=== PATIENT | female | born 2005 | race African-American/Black ===

== ENCOUNTER 2025-02-10 11:45 | Emergency (ER) | payer MEDICAID, OTHER ==
[~2025-02-10] VITALS: Ht 172.7 cm; Wt 61.0 kg
--- NOTE | 2025-02-10 12:04 | ED.PDOC ---
Eye-HPI HPI Comments 19 y.o female presents to the ED for a chief complain of right ear pain as sociated with bilateral eye discharge and redness. Patient reports tenderness when sleeping on right ear and has irritation to both eyes in which her son had a couple days ago. Patient reports decreasing hearing sound to the right ear but no total hearing loss, blurred vision, eye pain or trauma or concern for eye FB. States she feels like she has a fever and chills as well. Allergic to ibuprofen. Patient was recently on vacation on a cruise and returned on 02/03/25. No other complaints reported. Chief Complaint: Eye Problem Time Seen by MD: 11:58 Reviewed Notes: Nurses Notes, Medications, Allergies Allergies: Coded Allergies: Ibuprofen (Verified Allergy, Unknown, 02/10/25) Home Meds Active Scripts Amoxicillin & Pot Clavulanate (AUGMENTIN TABLET) 875 Mg Tb, 875 MG PO BID for 10 Days, #20 TAB Prov:TINA MATSON MD 02/10/25 Information Source: Patient Mode of Arrival: Ambulatory Timing: Days Duration: Since onset Quality: Pain Eye Location: Bilateral ENT Ear Exam: Tender Associated signs and symptoms: Ear Pain Past Medical History PAST MEDICAL HISTORY: Denies Surgical History: Denies all surgeries [employer] History: No Pertinent [employer] History Family History Family History: Reviewed,noncontributory to illness Social History Smoker: Non-Smoker Alcohol: Denies ETOH Use Drugs: Denies Drug Use Lives In: Home Constitutional: reports: fever; denies: chills, diaphoresis, fatigue, malaise, sweats, weakness, others EENTM: reports: ear pain, eye redness; denies: blurred vision, double vision, ear bleeding, ear discharge, ear drainage, ear ringing, eye pain, hearing loss, mouth pain, mouth swelling, nasal discharge, nose bleeding, nose congestion, nose pain, photophobia, tearing, throat pain, throat swelling, voice changes, others Respiratory: denies: cough, hemoptysis, orthopnea, SOB at rest, shortness of breath, SOB with excertion, stridor, wheezing, others Cardiovascular: denies: chest pain, dizzy spells, diaphoresis, Dyspnea on exertion, edema, irregular heart beat, left arm pain, lightheadedness, palpitations, PND, syncope, others Gastrointestinal: denies: abdomen distended, abdominal pain, blood streaked bowels, constipated, diarrhea, dysphagia, difficulty swallowing, hematemesis, melena, nausea, poor appetite, poor fluid intake, rectal bleeding, rectal pain, vomiting, others Genitourinary: denies: abnormal vagina bleeding, burning, dyspareunia, dysuria, flank pain, frequency, hematuria, incontinence, pain, , vagina discharge, urgency, others Neurological: denies: dizziness, fainting, headache, left sided numbness, left sided weakness, numbness, paresthesia, pre-existing deficit, right sided numbness, right sided weakness, seizure, speech problems, tingling, tremors, weakness, others Musculoskeletal: denies: back pain, gout, joint pain, joint swelling, muscle pain, muscle stiffness, neck pain, others Integumetry: denies: bruises, change in color, change in hair/nails, dryness, laceration, lesions, lumps, rash, wounds, others Allergic/Immunocompromised: denies: Difficulty Healing, Frequent Infections, H hugo, Itching, others Hematologic/Lymphatic: denies: anemia, blood clots, easy bleeding, easy bruising, swollen glands, others Endocrine: denies: excessive hunger, excessive sweating, excessive thirst, excessive urination, flushing, intolerance to cold, intolerance to heat, unexplained weight gain, unexplained weight loss, others Psychiatric: denies: anxiety, bipolar disorder, depression, hopeless, panic disorder, schizophrenia, sleepless, suicidal, others All Other Systems: Reviewed and Negative Physical Exam General Appearance: No Apparent Distress, Normal HEENT: Other (Mild oropharyngeal erythema without exudate. Uvula midline. Tolerating secretions well. Bilateral eye with conjunctival injections and discharge. Bilateral TM effusions with mild erythema, no bulge. EACs normal bilaterally. Mastoids non erythematous and nontender to palpation. No sinus tenderness to palpation. Congested.) Neck: Full Range of Motion, Non-Tender, Normal, Normal Inspection Respiratory: Chest Non-Tender, Lungs Clear, No Accessory Muscle Use, No Respiratory Distress, Normal Breath Sounds Cardiovascular: No Edema, No JVD, No Murmur, No Gallop, Normal Peripheral Pulses, Regular Rate/Rhythm Breast Exam: Deferred Gastrointestinal: No Organomegaly, Non Tender, No Pulsatile Mass, Normal Bowel Sounds, Soft Genitalia: Deferred Pelvic: Deferred Rectal: Deferred Extremities: No calf tenderness, Normal capillary refill, Normal inspection, Normal range of motion, Non-tender, No pedal edema Musculoskeletal : Apperance: Normal Neurologic: Alert, trading assistant II-XII nml as Tested, No Motor Deficits, Normal Affect, Normal Mood, No Sensory Deficits Cerebellar Function: Normal Reflexes: Normal Skin: Dry, Normal Color, Warm Lymphatic: No Adenopathy Was a procedure done? Was a procedure done?: No EENT DIFF Eye: Conjunctivitis, Allergic, Viral, Corneal Lacerations, Subconjunctival Hemorrhag Ear: Cerumen Impaction, Otitis Externa, Otitis Media X-Ray, Labs, Meds, VS Vital Signs Date Time Temp Pulse Resp B/P (MAP) Pulse Ox O2 Delivery O2 Flow Rate FiO2 02/10/25 11:58 98.2 109 16 132/83 (99) 98 98.2 X-Ray, Labs, Meds, VS Comment 19-year-old female here today with the above complaints. Patient was given a dose of Tylenol for her suspected viral URI however I also prescribed her a course of Augmentin should her symptoms not improve within the next two days she can start to take this. Doubt pneumonia. Doubt strep throat. Doubt cavernous sinus thrombosis. Instructed the patient on maintaining good oral hydration and follow up with the primary care provider within two days for re-evaluation. Return precautions discussed including but not limited to eye pain, discharge, numbness, weakness, vision changes, ear pain, headaches, or any other new or concerning symptoms. Patient expressed understanding and was discharged home in stable condition ambulating with a steady gait in no distress. Time of 1ST Reevaluation: 12:00 Reevaluation 1ST: Unchanged Patient Education/Counseling: Diagnosis, Treatment, Prognosis Family Education/Counseling: No Family Present SEPSIS Sepsis Screen Vital Signs Date Time Temp Pulse Resp B/P (MAP) Pulse Ox O2 Delivery O2 Flow Rate FiO2 02/10/25 11:58 98.2 109 16 132/83 (99) 98 98.2 Departure 1 Departure Time of Disposition: 12:54 Impression: Primary Impression: Viral URI Additional Impression: Acute effusion of both middle ears Disposition: 01 HOME / SELF CARE / HOMELESS Condition: Stable e-Prescriptions Amoxicillin & Pot Clavulanate (AUGMENTIN TABLET) 875 Mg Tb 875 MG PO BID for 10 Days, #20 TAB Prov: DANO,AHMED M MD 02/10/25 Discharged With: Self Critical Care Note Critical Care Time?: No Stability Stability form required: No I personally scribed for TINA MATSON MD ([email or web address]) on 02/10/25 at 12:04. Electronically submitted by Filomena Ellis ([facility]). TINA MATSON MD Feb 10, 2025 12:04
[2025-02-10] MEDS ORDERED: AUG875T PO (12:40)
[2025-02-10] MEDS: ACETAMINOPHEN 325 MG TAB PO ONE (13:24)
[2025-02-10 13:30] VITALS: RESP 18; O2SAT 99
[2025-02-10 13:32] VITALS: BP 126/83; PULSE 78; RESP 18; TEMP 98.5; O2SAT 99
== END 2025-02-10 13:34 | disposition home or self-care (01) ==
LOC: ER 11:45
DX: J06.9 Acute upper respiratory infection, unspecified (principal); H93.8X3 Other specified disorders of ear, bilateral; Z79.899 Other long term (current) drug therapy; Z88.6 Allergy status to analgesic agent